=== PATIENT | female | born 1995 | race Two or more races ===

== ENCOUNTER 2025-03-05 14:29 | Emergency (ER) | payer MEDICAID, SELFPAY ==
[2025-03-05 15:18] VITALS: BP 108/70; PULSE 73; RESP 16; TEMP 37.2; O2SAT 100; BMI 20.2
--- NOTE | 2025-03-05 16:01 | EDNOTE_ITS ---
ED Wound/Laceration-RME/HPI General Chief Complaint: Wound/Laceration Stated Complaint: LAC R) HAND Time Seen by Provider: 03/05/25 15:22 Arrival date/time: 03/05/25 14:29 This is a 29-year-old female that comes into the emergency room with complaints of small laceration to dorsal right fourth digit. Approximately half a centimeter it runs horizontally. Patient states that she was opening a can. Patient denies any other trauma. Related Data Previous Rx's ?Medication ?Instructions ?Recorded docusate sodium 100 mg capsule 100 mg PO BID #60 caps 08/03/21 (Colace) ibuprofen 600 mg tablet 600 mg PO Q6H PRN pain #60 t abs 08/03/21 lanolin 50 % topical ointment 1 applic topical TID PRN skin 08/03/21 irritation #15 tubes vitamins with calcium 1 tab PO QDAY #30 tabs 08/03/21 no.72-iron 27 mg-folic acid 1 mg tablet ( Vitamins Plus Low Iron) ibuprofen 600 mg tablet 600 mg PO TID PRN pain #30 t abs 08/01/23 Allergies Allergy/AdvReac Type Severity Reaction Status Date / Time No Known Allergies Allergy Verified 03/05/25 14:31 Review of Systems Review of Systems Systems Reviewed: All systems reviewed, normal except as documented Past Medical History Surgical History SURGICAL: Negative Section ED Exam Narrative Physical exam: VITAL SIGNS: Reviewed. GENERAL APPEARANCE: Alert and interactive, follows commands, no acute distress HEAD AND FACE: Non-traumatic. ENT: PERRL, conjuctiva pink and clear, eyelid no trauma, Mucous membrane moist. NECK: Supple, nontender, no nuchal rigidity. CHEST: No tenderness, no crepitus, no paradoxical movement, no retractions. LUNGS: breathing even and unlabored HEART: Regular rate, cap refill less than 2 seconds ABDOMEN: Soft, nondistended, no guarding, nontender, no rebound, no masses, NEUROLOGICAL: Gross motor function intact sensory function intact, Appropriate for age. MUSCULOSKELETAL: low back nontender, full range of motion. EXTREMITIES: No redness no swelling no skin breakdown on bilateral foot and leg. Distal neurovascular status intact bilateral foot SKIN: Color pink, dry, no rash, small superficial laceration approximately half a centimeter to right dorsal hand below fourth digit Course Quality Measures none Orders Category Date Time Status TET,DIP/PERT AC (Adult)-Tdap [Boostrix Adult (Tdap) Med 03/05/25 16:02 Discontinued Vacc] 0.5 ml IMI .ONCE ONE Vital Signs Vital signs: Vital Signs Temperature 98.9 F 03/05/25 15:18 Pulse Rate 73 03/05/25 15:18 Respiratory Rate 16 03/05/25 15:18 Blood Pressure 108/70 03/05/25 15:18 Pulse Oximetry (%) 100 03/05/25 15:18 Oxygen Delivery Method Room Air 03/05/25 15:18 Wound / Laceration MDM Narrative MDM Narrative:: Wound was cleansed. Wound was very small and superficial. Will closed with glue and Steri-Strip. Wound well-approximated. Patient tolerated well. Will put a finger splint to have patient keep finger straight. Patient told to follow-up with primary provider 1 to 2 days. [place] to emergency room symptoms change or worsen. Dragon dictation: Although this document has been carefully reviewed, there may still be some phonetic and other typographical errors. These errors are purely grammatical due to imperfections in the software program and should not be construed in any way to compromise the substance of the patient's medical care during this visit. Patient data External records reviewed:: [facility] previous records Clinical information provided by:: patient Social determinants that could affect healthcare access:: none Patient has the following chronic illnesses:: none How is presenting disease/condition affected by chronic disease/condition?: no chronic disease Evaluation data The following diagnostics were reviewed and interpreted by me:: other (specify) (none ) Lab and/or radiology exams considered but not ordered:: none Interpretation Summary: see note Medications / Prescriptions Medications or Prescriptions considered but not ordered:: none Medication administrations:: Medication Administration History Discontinued Medications Diphtheria/Tetanus/Acell Pertussis (Diphth,Pertuss(Acell),Tet Vac 0.5 Ml Syr- Adult) 0.5 ml IMi .ONCE ONE Stop: 03/05/25 16:03 Last Admin: 03/05/25 16:19 Dose: 0.5 ml Documented By: GAURI see [facility] Consultations Consultation(s) initiated? (list below): No Diagnosis Wound Differential Diagnosis: laceration, abrasion and avulsion of skin Most likely diagnosis given after review of the tests above:: laceration Admission Indicated Admission indicated?: not indicated Admission Request Was there a request for admission?: No Disposition Plan Disposition Plan: Discharge Discharge Attestation Discharge Attestation: The patient and all family members were given an opportunity to ask questions and understood the discharge instructions. Discharge instructions specifically effects, indications for sooner follow up or return to the emergency department, and the expected course of current diagnosis. Patient condition: Stable Discharge Plan Plan Patient Disposition: HOME (Self Care) Patient condition on transfer: Stable Prescriptions/Referrals Prescriptions/Med Rec: No Action docusate sodium [Colace] 100 mg capsule 100 mg PO BID Qty: 60 0RF ibuprofen 600 mg tablet 600 mg PO Q6H PRN (Reason: pain) Qty: 60 0RF lanolin 50 % ointment 1 applic topical TID PRN (Reason: skin irritation) Qty: 15 0RF Vitamin Plus Low Iron 27 mg iron- 1 mg tablet 1 tab PO QDAY Qty: 30 0RF ibuprofen 600 mg tablet 600 mg PO TID PRN (Reason: pain) Qty: 30 0RF Referrals: Michael Messina FNP [Primary Care Provider] - In 1 week Problem List Clinical Impression: Laceration Patient/Caregiver Discharge Instructions Discharge Activity: activity as tolerated Education Materials: ED Laceration: Skin Adhesive Additional Instructions: Follow up with primary provider in 1-2 days. Come back to ED if symptoms change or worsen Print Language: Estonian Stand Alone Forms: Holly Award Info., Patient Portal Info Letter PA/YARN PREPARATION SUPERVISOR Supervising Physician JEFFRY/YARN PREPARATION SUPERVISOR Supervising Physician: linnette
[2025-03-05] MEDS: DIPHTH,PERTUSS(ACELL),TET VAC 0.5 ML SYR- ADULT IMi (16:19)
== END 2025-03-05 17:30 | disposition home or self-care (01) ==
PROVIDERS: Emergency Provider Emergency Medicine
DX: S61.411A Laceration without foreign body of right hand, initial encounter (principal); W26.8XXA Contact with other sharp object(s), not elsewhere classified, initial encounter
CPT/HCPCS: 29130; 90471; 90715; 99281